=== PATIENT | female | born 1975 | race Caucasian/White ===

== ENCOUNTER 2018-02-13 11:07 | Observation (INO) | payer BC ==
[~2018-02-13] VITALS: Ht 167.6 cm; Wt 75.3 kg
[2018-02-13] MEDS ORDERED: CALCIUM CARBONATE 500MG TABLET CHEW PO PRN (13:00)
[2018-02-13] MEDS ORDERED: LACTATED RINGERS 1,000 ML IV SCH ×3 (13:18→14:00)
[2018-02-13] MEDS ORDERED: PNV1TABL76 MT (16:10)
== END 2018-02-13 16:30 | disposition home or self-care (01) ==
LOC: L&D 11:07
PROVIDERS: ADMIT Obstetrics & Gynecology; ATTEND Obstetrics & Gynecology
DX: O46.93 Antepartum hemorrhage, unspecified, third trimester (principal); O09.523 Supervision of elderly multigravida, third trimester; Z3A.33 33 weeks gestation of pregnancy
CPT/HCPCS: 76805; 76818; 99281; G0378; 96360; 96361; J7120